=== PATIENT | female | born 1965 | race Caucasian/White ===

== ENCOUNTER 2017-04-10 08:51 | Day surgery (SDC) | payer MEDICAID ==
[~2017-04-10 08:51] MED LIST: ACETAMINOPHEN 500 MG TABLET PO PRN; HYDROmorphone HCL 2 MG/ML VIAL IV PRN; MAG HYDROX/ALUMINUM HYD/SIMETH 30 ML UDC PO PRN; MAGNESIUM HYDROXIDE 30 ML UDC PO PRN; ONDANSETRON HCL/PF 2 MG/ML VIAL IV PRN; PROMETHAZINE HCL 25 MG in DEXTROSE 5 % IN WATER 50 ML IV PRN; RINGER'S SOLUTION,LACTATED 1,000 ML IV PRN; ZOLPIDEM TARTRATE 5 MG TABLET PO PRN; ceFAZolin SODIUM 1 GM VIAL IV PRN; diphenhydrAMINE HCL 50 MG/ML VIAL IV PRN; oxyCODONE HCL/ACETAMINOPHEN 1 TAB TABLET PO PRN
[2017-04-10] MEDS ORDERED: RINGER'S SOLUTION,LACTATED 1,000 ML IV ONE (11:00)
[2017-04-10] MEDS ORDERED: BUPIVACAINE HCL 50 ML VIAL IJ ONE (11:20)
--- NOTE | 2017-04-10 11:24 | POSTOP NO ---
Date of Surgery: 04/10/17 Patient Tolerated the Procedure: Well Post Operative Diagnosis/Procedures: Envelope Machine Adjuster: Lasha Lo PA-C Post-operative Diagnosis: Closed displaced right fifth metatarsal fracture Finding: Above Procedure: Open reduction internal fixation of right fifth metatarsal fracture Estimated Blood Loss: Minimal Specimens: None
[2017-04-10 15:18] VITALS: BP 94/59
[2017-04-10] MEDS ORDERED: SENNOSIDES/DOCUSATE SODIUM 1 TAB TABLET PO SCH (21:00)
== END 2017-04-10 08:52 | disposition home or self-care (01) ==
LOC: AMB 08:51
PROVIDERS: ATTEND Orthopaedic Surgery
PROC: 0QSN04Z Reposition Right Metatarsal with Internal Fixation Device, Open Approach (ICD-10-PCS; principal; 2017-04-10)
DX: S92.351A Displaced fracture of fifth metatarsal bone, right foot, initial encounter for closed fracture (principal); E03.9 Hypothyroidism, unspecified; X50.0XXA Overexertion from strenuous movement or load, initial encounter; F17.200 Nicotine dependence, unspecified, uncomplicated; Z68.24 Body mass index [BMI] 24.0-24.9, adult
CPT/HCPCS: 28485; J2405